=== PATIENT | female | born 1970 | race Caucasian/White ===

== ENCOUNTER 2017-06-12 08:34 | Emergency (ER) | payer OTHER ==
[~2017-06-12] VITALS: Ht 152.4 cm; Wt 110.7 kg
[2017-06-12] MEDS ORDERED: DIAZEPAM 5 MG TAB PO ONE (09:00)
[2017-06-12] MEDS ORDERED: KETOROLAC TROMETHAMINE 60 MG/2 ML VIAL IM ONE (09:00)
[2017-06-12] MEDS ORDERED: CYCLOBENZAPRINE5 MG PO (09:36)
[2017-06-12] MEDS ORDERED: TYLENOL WITH C1 EACH PO (09:36)
[2017-06-12] MEDS ORDERED: ZOFRAN ODT4 MG SL (09:36)
[2017-06-12 09:53] VITALS: BP 118/80
[2017-06-12] MEDS ORDERED: PROMETHAZINE HCL 25 MG TAB PO ONE (12:00)
== END 2017-06-12 09:55 | disposition home or self-care (01) ==
LOC: ER 08:34
DX: S39.012A Strain of muscle, fascia and tendon of lower back, initial encounter (principal); X58.XXXA Exposure to other specified factors, initial encounter
CPT/HCPCS: 96372; 99283; J1885

== ENCOUNTER 2017-08-05 09:28 | Emergency (ER) | payer OTHER ==
[~2017-08-05] VITALS: Ht 152.4 cm; Wt 110.7 kg
[~2017-08-05 09:28] MED LIST: CYCLOBENZAPRINE5 MG PO; TYLENOL WITH C1 EACH PO; ZOFRAN ODT4 MG SL
[2017-08-05] MEDS ORDERED: KETOROLAC TROMETHAMINE 60 MG/2 ML VIAL IM ONE (10:00)
[2017-08-05] MEDS ORDERED: ROBAXIN-750750 MG PO (10:25)
== END 2017-08-05 10:35 | disposition home or self-care (01) ==
LOC: ER 09:28
DX: M54.2 Cervicalgia (principal); S16.1XXA Strain of muscle, fascia and tendon at neck level, initial encounter; Y93.84 Activity, sleeping
CPT/HCPCS: 99282; J1885

== ENCOUNTER 2020-05-29 23:51 | Emergency (ER) | payer OTHER ==
[~2020-05-29] VITALS: Ht 152.4 cm; Wt 110.7 kg
[~2020-05-29 23:51] MED LIST changes: +ROBAXIN-750750 MG PO
== END 2020-05-30 00:10 | disposition home or self-care (01) ==
LOC: ER 23:59
DX: R43.8 Other disturbances of smell and taste (principal); Y93.E9 Activity, other interior property and clothing maintenance; I10 Essential (primary) hypertension; E11.9 Type 2 diabetes mellitus without complications
CPT/HCPCS: 99282